=== PATIENT | male | born 1995 | race Two or more races ===

== ENCOUNTER 2024-11-03 09:41 | Emergency (ER) | payer SELFPAY ==
[2024-11-03] MEDS: Acetaminophen/oxyCODONE 325-5 MG Tab PO ONE (12:34)
[2024-11-03] MEDS: Ketorolac 60 MG/2 ML SDV IM ONE (12:47)
== END 2024-11-03 13:25 | disposition home or self-care (01) ==
LOC: JD.ED 09:41
DX: S82.431A Displaced oblique fracture of shaft of right fibula, initial encounter for closed fracture (principal); F17.200 Nicotine dependence, unspecified, uncomplicated; Z79.899 Other long term (current) drug therapy; W19.XXXA Unspecified fall, initial encounter
CPT/HCPCS: 29515; 73590; 73610; 96372; 99283; A9270; J1885